=== PATIENT | female | born 1955 | race Caucasian/White ===

== ENCOUNTER 2018-12-03 09:57 | Emergency (ER) | payer BC ==
--- NOTE | 2018-12-03 10:35 | ED ---
Complex/Multi-Sys Presentation - HPI Summary HPI Summary: Patient is a 63 y/o F presenting to ED with complaints of right eye erythema, right eye blurred vision, right dilated pupil. She additionally notes her right eye has been "watery" and reports that while she was in ED, she first noted that she had loss of peripheral vision in her right upper eye. She states that yesterday, 12/02/18, she had been feeling "run down" and states that her eye had been "watery" through most of the day. In the evening yesterday 12/02/18, she had noticed her right eye to be significantly erythematous. This morning, 12/03/18, around 0900, she noted that her right pupil was dilated. She called PCP, who advised the patient to come to ED for evaluation. While here, during visual acuity testing, the patient noticed that she had loss of peripheral vision in her right upper eye. Patient claims that she had not noticed this previously. Eye pain is denied. Pt also states that approximately 5 days ago she had a small tree branch brush against her eye but states it did not cause irritation or redness. She has no history of any other eye problems. She saw an eye doctor approximately 4 years ago, but cannot remember his name and she is not sure if he is an pharmacy consultant or an senior technical specialist. She notes that she feels anxious at this time. PMHx of HTN, cardiac disease, and diabetes is denied. She reports no tobacco or substance usage and no alcohol use. FMHx of HTN, strokes, diabetes is denied in her family history. Pulse 83, BP 150/82, o2 98. On triage , nothing is noted to aggravate/alleviate Sx. Home medications and allergies are reviewed. She takes only ritalin and supplemental vitamins. She is allergic to doxycycline. - History Of Current Complaint Chief Complaint: EDEyeProblem Time Seen by Provider: 12/03/18 10:17 Hx Obtained From: Patient Onset/Duration: Lasting Hours - dilated pupil, loss of peripheral vision, right eye, Lasting Days - erythematous and "watery" right eye, fatigued, Still Present Timing: Constant, Hours - dilated pupil, loss of peripheral vision, right eye, Days - erythematous and "watery" right eye, fatigued Aggravating Factor(s): nothing Alleviating Factor(s): nothing Associated Signs And Symptoms: Positive: Other - right eye erythema, right dilated pupil, right eye has been "watery", loss of peripheral vision in her right upper eye, right eye blurred vision, fatigued, anxious; no eye pain. Negative: Fever, Immunocompromised - Allergies/Home Medications Allergies/Adverse Reactions: Allergies Allergy/AdvReac Type Severity Reaction Status Date / Time doxycycline Allergy Rash And Verified 12/03/18 10:05 Itching Home Medications: Home Medications Ascorbic Acid TAB* [Vitamin C TAB*] 500 mg PO DAILY 12/03/18 [History Confirmed 12/03/18] Cyanocobalamin/Cobamamide [Vitamin B-12 5,000 Mcg Tab Sl] 2 each SL DAILY [History Confirmed 12/03/18] Glucosamine Sulfate Dipot Chlr [Gnp Glucosamine Maximum S] 2,000 mg PO DAILY 09/18 [History Confirmed 12/03/18] Methylphenidate TAB* [Ritalin TAB*] 5 mg PO 0700,1400 12/03/18 [History Confirmed 12/03/18] PMH/Surg Hx/FS Hx/Imm Hx Previously Healthy: Yes Cardiovascular History: Denies: Hx Hypertension Sensory History: Denies: Hx Legally Blind Opthamlomology History: Denies: Hx Legally Blind Psychiatric History: Reports: Hx Attention Deficit Hyperactivity Disorder - ADD - Cancer History Hx Chemotherapy: No Hx Radiation Therapy: No Infectious Disease History: No Infectious Disease History: Denies: Traveled Outside the [place] in Last 30 Days - Family History Known Family History: Positive: Other - no FMHx of stroke Negative: Hypertension, Diabetes - Social History Lives: With Family Alcohol Use: None Substance Use Type: Reports: None Smoking Status (MU): Never Smoked Tobacco Review of Systems Positive: Fatigue. Negative: Fever Eyes: Other - positive - right dilated pupil, loss of peripheral vision in her right upper eye Positive: Blurred Vision, Drainage - "watery", Erythema - of conjunctiva ENT: Negative Cardiovascular: Negative Respiratory: Negative Gastrointestinal: Negative Genitourinary: Negative Musculoskeletal: Negative Skin: Negative Neurological: Negative Positive: Anxious All Other Systems Reviewed And Are Negative: Yes Physical Exam - Summary Physical Exam Summary: Appearance: Well-appearing, no pain distress, well-nourished Skin: Warm, color reflects adequate perfusion, dry Head: Normal Head/Face inspection, atraumatic, except for conjunctiva right eye Eyes: Anisocoria; right pupil 4 mm, left pupil 1 mm. EOMI, no nystagmus, fundoscopic: right eye well visualized with vessels without dilation or silver wiring, no hemorrhage noted; optic nerve, not well delineated, and slightly irregular, no papilledema. ENT: Normal inspection Neck: Supple, no nodes, no JVD Respiratory: Lungs clear, normal breath sounds, no respiratory distress Cardio: RRR, No murmur, pulses normal, brisk capillary refill Abdomen: Soft, nontender Bowel sounds: Present Musculoskeletal: Strength Intact/ROM intact, no calf tenderness, no edema. Psychological: Normal Neuro: Alert, muscle tone normal, no focal deficit, GCS 15, NIH 0 for (see NIH for details), loss of visual field is only in outer upper quadrant of right eye , not half of visual field. Triage Information Reviewed: Yes Vital Signs On Initial Exam: Initial Vitals Temp Pulse Resp BP Pulse Ox 97.4 F 71 16 137/74 98 12/03/18 10:02 12/03/18 10:02 12/03/18 10:02 12/03/18 10:02 12/03/18 10:02 Vital Signs Reviewed: Yes - [place] Coma Scale Best Eye Response: 4 - Spontaneous Best Motor Response: 6 - Obeys Commands Best Verbal Response: 5 - Oriented Coma Scale Total: 15 Diagnostics - Vital Signs Vital Signs Temp Pulse Resp BP Pulse Ox 12/03/18 10:02 97.4 F 71 16 137/74 98 - Laboratory Lab Statement: Any lab studies that have been ordered have been reviewed, and results considered in the medical decision making process. National Institutes Of Health - NIH Scale Level of Consciousness: Alert/Keenly Responsive Ask Patient the Month and His/Her Age: Both Correct Ask Pt to Open/Close Eyes and Spa Assistant Manager/Release Non-Paretic Hand: Both Correctly Best Gaze (Only Horizontal Eye Movement): Normal Visual Field Testing: No Visual Loss - except right eye upper outer quadrant only Facial Paresis-Pt to Smile & Close Eyes or Grimace Symmetry: Normal/Symmetrical Motor Function - Right Arm: No Drift-Holds 10 Seconds Motor Function - Left Arm: No Drift-Holds 10 Seconds Motor Function - Right Leg: No Drift-Holds 10 Seconds Motor Function - Left Leg: No Drift-Holds 10 Seconds Limb Ataxia-Must be out of Proportion to Weakness Present: Absent Sensory (Use Pinprick to Test Arms/Legs/Trunk/Face): Normal Best Language (Describe Picture, Name Items): No Aphasia Dysarthria (Read Several Words): Normal Extinction and Inattention: No Abnormality Total Score: 0 Re-Evaluation - Re-Evaluation First Eval Re-Evaluation Time: 10:40 Comment: Patient updated on need to transfer. Patient and , who is now present in the room, are agreeable with transfer. Second Eval Re-Evaluation Time: 10:43 Comment: Initial report on patient given to Cait at [facility]. And then discussed and presented to Dr. Bradford Brooks, who recommends transfer to his office urgently at [facility] by private car with no further studies, such as CT, CTA or MRI to be done prior to transfer. Third Eval Re-Evaluation Time: 11:04 Comment: Updated patient and on disposition plan, they are agreeable with plan as discussed. Complex Multi-Symp Course/Dx Course Of Treatment: Patient is a 63 y/o F presenting to ED with complaints of right eye conjunctival erythema, right eye blurred vision, right dilated pupil. She additionally notes her right eye has been "watery" and reports that while she was in ED, she first noted that she had loss of peripheral vision in her right upper eye, and on visual acuity testing her vision in the right eye was 20 /200, and in her left eye was 20/40 and in both eyes was 20/40. She has no other systemic illnesses. She states that yesterday, 12/02/18, she had been feeling "run down" and states that her eye had been "watery" through most of the day. In the evening yesterday 12/02/18, she had noticed her right eye to be significantly erythematous. This morning, 12/03/18, around 0900, she noted that her right pupil was dilated. While here, during visual testing, the patient noticed that she had loss of peripheral vision in her right upper eye. Eye pain is denied. On physical exam, anisocoria noted, right pupil 4 mm. 20/40 on left , 20/40 on both, 20/200 on right. Fundoscopic: right eye well visualized with vessels without dilation or silver wiring, no hemorrhage noted, optic nerve, not well delineated and slightly irregular, no papilledema. Left eye fundus not well visualized due to small pupil, but vessels visualized and normal diameter, optic nerve not visualized, no hemorrhage in the area visualized. 1032 - Patient's case was discussed with Dr. Keyes, neurologist, who participates in [facility] stroke center. He states that the patient's issues sound ophthalmologic in nature and does not advise contacting [facility]. As there is no opthamologist coverage, transfer process for the patient will be initiated. 1045 - Patient's case was discussed with Dr. Bradford Brooks. He advises patient to be seen urgently in his office, patient will proceed to registration desk but not sign-in ED at [facility]. She will be proceedin directly to his office. Patient may be discharged from our ED and proceed via private car with driving to [facility] ED. Dr. Brooks approves transfer without performing CT of brain or CTA of Head/Neck,or MRI at our facility. Patient and are agreeable with the plan. Patient is being transferred to higher level of care via private car due to lack of opthamologist services at [facility] today. - Diagnoses Provider Diagnoses: Redness of right eye, Anisocoria, Acute loss of vision, Peripheral visual field defect of right eye - Physician Notifications Discussed Care Of Patient With: Ludin Keyes Time Discussed With Above Provider: 10:32 Instructed by Provider To: Will See In ED - 1032 - Patient's case was discussed with Dr. Keyes, neurologist who participates in [facility] stroke center. He states that the patient's issues sound ophthalmologic in nature and does not advise contacting [facility], does not present as a systemic stroke. 1045 - Patient's case was discussed with Dr. Bradford Brooks. He advises patient to be seen urgently in his office. Patient will proceed to registration desk but not sign-in ED at [facility]. She will be directed to his office. Patient may be discharged from our ED and proceed via private car with driving to [facility] ED. Dr. Brooks approves transfer without performing CT of brain or CTA of Head/Neck, or MRI at our facility. Dr Brooks will see patient in his office now, as soon as possible. Reason For Transfer: Specialty available at [facility] but not [employer] consultant. Discharge - Sign-Out/Discharge Documenting (check all that apply): Patient Departure - discharged from ED to go via private car to higher level of care facility, at opthamologist's office - Discharge Plan Condition: Stable Disposition: TRANS HIGHER LVL OF CARE FAC Patient Education Materials: Blurred Vision (ED) Referrals: Daniella DATABASE ADMINISTRATION PROJECT MANAGER-C,Ana Linn [Primary Care Provider] - Todd KC,Bradford Castrejon [Medical Doctor] - As Soon As Possible Additional Instructions: You have presented to our emergency department with a right red eye, a dilated right pupil, a periperal field cut in your upper outer quadrant of your right eye, and 20/200 vision in the right eye, 20/40 vision in the left eye, 20/40 vision in both eyes. We spoke with our neurologist Dr. Ludin Keyes who did not feel this was a systemic stroke based on our NIH stroke scale exam. You did not have any other neurologic deficit. We have spoken with Dr Bradford Brooks, pharmacy consultant, at [facility] in [place], [place]. He wants to see you urgently in his office that is adjacent to the Emergency Department. He will meet you in his office. Go to the emergency room entrance, but do not sign in to the emergency department. The car rental clerk there will direct you to where Dr. Brooks will see you. Please go directly there. Do not have anything to eat or drink until you see him. Dian should not drive. Do not take any medications, or put anything in your eye. Dr. Brooks will direct you to any further care, and what follow up you should have. We have completed transfer center paperwork about you, and Dr. Brooks has approved that you may be transferred by private car. - Billing Disposition and Condition Condition: STABLE Disposition: Trans Higher Lvl of Care Fac - Attestation Statements Document Initiated by Scribe: Yes Documenting Scribe: SAMIA LARIOS Provider For Whom Brandon is Documenting (Include Credential): YOLANDA ROME MD Scribe Attestation: SAMIA Arguello, scribed for YOLANDA ROME MD on 12/03/18 at 1146. Scribe Documentation Reviewed: Yes Provider Attestation: The documentation as recorded by the SAMIA bernal accurately reflects the service I personally performed and the decisions made by me, YOLANDA ROME MD Status of Scribe Document: Viewed
[2018-12-03 11:35] VITALS: BP 157/87
== END 2018-12-03 11:35 | disposition short-term general hospital (02) ==
LOC: ED 09:57
DX: H57.02 Anisocoria (principal); H54.61 Unqualified visual loss, right eye, normal vision left eye; H53.451 Other localized visual field defect, right eye; H57.9 Unspecified disorder of eye and adnexa; R53.83 Other fatigue; F41.9 Anxiety disorder, unspecified; F98.8 Other specified behavioral and emotional disorders with onset usually occurring in childhood and adolescence; Z88.1 Allergy status to other antibiotic agents
CPT/HCPCS: 99284

== ENCOUNTER 2022-11-01 22:17 | Observation (INO) ==
[2022-11-02] MEDS ORDERED: Piperacillin/Tazobac ADVAN 3.375 GM in NS 0.9% 100 ml BAG 100 ML IV ONE (00:28)
[2022-11-02] MEDS ORDERED: NS 0.9% 1000 ml BAG 1,000 ML IV ONE (00:28)
[2022-11-02 01:04] LABS: ABS Eosinophils 0.1 10^3/uL (0.0-0.5); ABS Lymphocytes 1.4 10^3/uL (1.0-4.8); ABS Monocytes 0.8 10^3/uL (0.0-0.9); ABS Neutrophils 4.7 10^3/uL (1.5-7.6); Hematocrit 36.1 % (35-45); Hemoglobin 12.2 g/dL (11.5-14.3); Lymphocyte % 20.3 %; Mean Corpuscular Hgb Conc 33.9 g/dL (31-36); Mean Corpuscular Volume 94.2 fL (80-97); Mean Platelet Volume 7.9 fL (7.5-11.2); Platelet Count 285 10^3/uL (150-450); Red Blood Count 3.83 10^6/uL (3.63-4.92); Red Cell Distribution Width 13.5 % (12-17); White Blood Count 7.1 10^3/uL (3.8-11.8)
[2022-11-02 01:21] LABS: Calcium 9.2 mg/dL (8.6-10.3); Creatinine, Serum 0.85 mg/dL (0.51-0.95); Potassium 3.7 mmol/L (3.5-5.0); Total Protein 6.5 g/dL (6.4-8.9)
[2022-11-02 01:22] LABS: Albumin/Globulin Ratio 1.6 (1-3); C Reactive Protein 8.14 mg/L (<8.01); Globulin 2.5 g/dL (2-4); Total Bilirubin 0.4 mg/dL (0.2-1.0)
[2022-11-02] MEDS ORDERED: Zosyn per Pharmacy NOTE FOLLOW UP SCH (02:00)
[2022-11-02 02:44] LABS: Activated Partial Thrombo Time 27.8 seconds (26.0-38.0)
[2022-11-02 02:45] LABS: Erythrocyte Sed Rate 10 mm/Hr (0-29)
[2022-11-02] MEDS ORDERED: ZOSYN 3.375 GM Q8H per EXTENDED INFUSION IV SCH (05:00)
[2022-11-02] MEDS ORDERED: fentaNYL 100 mcg/2 ml 50 MCG/ML VIAL ONE (13:09)
[2022-11-02] MEDS ORDERED: Midazolam 2 mg/2 ml VIAL 1 mg/ml 2 ml VIAL (2 mg) ONE (13:09)
[2022-11-02] MEDS ORDERED: Bupivacaine 0.25% SDV 30 ML ONE (13:16)
[2022-11-02] MEDS ORDERED: Lidocaine 1% VIAL 10 MG/ML VIAL 30 ML ONE (13:16)
[2022-11-02] MEDS: ZOSYN 3.375 GM Q8H per EXTENDED INFUSION IV SCH ×2 (15:20→22:03)
[2022-11-02] MEDS ORDERED: Ondansetron 4 mg VIAL 2 MG/ML 2 ml VIAL IV PRN (15:36)
[2022-11-02 20:05] LABS: INR 1.26 (0.88-1.18)
[2022-11-03] MEDS ORDERED: Lactated Ringers 1000 ml BAG 500 ML IV ONE (02:24)
[2022-11-03] MEDS: ZOSYN 3.375 GM Q8H per EXTENDED INFUSION IV SCH (05:24)
[2022-11-03 10:13] VITALS: BP 102/67
== END 2022-11-03 12:35 | disposition home or self-care (01) ==
LOC: EDHOLD 22:17 → ED 22:17 → SUATTDRO 11-02 01:01 → MEDTELE 11-02 05:35 → MED 11-03 06:36
PROVIDERS: ADMIT Hospitalist; ATTEND Internal Medicine